=== PATIENT | male | born 1990 | race Asian ===

== ENCOUNTER 2019-10-10 06:53 | Emergency (ER) | payer BC ==
[~2019-10-10] VITALS: Ht 165.1 cm; Wt 61.2 kg
[2019-10-10 06:58] VITALS: BP 140/96
== END 2019-10-10 07:53 | disposition home or self-care (01) ==
LOC: ED 07:09
DX: H65.02 Acute serous otitis media, left ear (principal); H91.92 Unspecified hearing loss, left ear
CPT/HCPCS: 99282